=== PATIENT | female | born 1970 | race Caucasian/White ===

== ENCOUNTER 2021-10-22 11:45 | Emergency (ER) | payer OTHER, SELFPAY ==
--- NOTE | ~2021-10-22 | XR_ITS ---
EXAMINATION: XR CHEST CLINICAL INFORMATION: Chest pain COMPARISON: 07/01/2019 TECHNIQUE: 2 views of the chest were obtained. FINDINGS: No significant abnormality is noted involving the heart, lungs, mediastinum, bony thorax or soft tissues. XR/XR chest 2V IMPRESSION: Unremarkable examination.
[2021-10-22 12:51] VITALS: BP 188/83; PULSE 85; RESP 18; TEMP 36.6; O2SAT 99; BMI 32.8
--- NOTE | 2021-10-22 12:56 | ECG_ITS ---
Test Reason : CHESTPAIN Blood Pressure : / mmHG Vent. Rate : 071 BPM Atrial Rate : 071 BPM P-R Int : 172 ms QRS Dur : 080 ms QT Int : 380 ms P-R-T Axes : 045 011 033 degrees QTc Int : 412 ms Normal sinus rhythm Normal ECG When compared with ECG of 01-JUL-2019 10:12, No significant change was found Referred By: Generic ED Physician Electronically Signed By:Tommy Egan
[2021-10-22 13:16] LABS: MANUAL DIFF FLAG NO
[2021-10-22 13:37] LABS: Troponin-I High Sensitivity < 3.5 ng/L (<3.5-17.0)
[2021-10-22 13:46] LABS: Basophils Absolute Auto 0.1 X10*3/uL (0.0-0.2); Basophils Percent Auto 0.9 % (0-2); Eosinophils Absolute Auto 0.1 X10*3/uL (0.0-0.4); Eosinophils Percent Auto 0.7 % (0-4); Hematocrit 42.6 % (37.0-47.0); Hemoglobin 14.1 g/dl (12.0-16.0); Imm Gran Abs Auto 0.04 X10*3/uL (0.00-0.03); Imm Gran Pct Auto 0.5 % (0.0-0.4); Lymphocytes Absolute Auto 2.1 X10*3/uL (1.2-4.9); Lymphocytes Percent Auto 27.4 % (20-40); Mean Corpuscular HGB Conc 33.1 g/dl (31.0-35.0); Mean Corpuscular Hemoglobin 29.9 pg (27.0-33.0); Mean Corpuscular Volume 90.4 fL (80.0-98.0); Mean Platelet Volume 9.3 fL (9.4-12.3); Monocytes Absolute Auto 0.4 X10*3/uL (0.1-1.2); Monocytes Percent Auto 5.6 % (2-11); Neutrophils Absolute Auto 4.8 x10*3/uL (2.0-8.3); Neutrophils Percent Auto 64.9 % (45-73); Platelet Count 429 X10*3/uL (160-400); Red Blood Count 4.71 X10*6/uL (4.20-5.50); Red Cell Distribution Width 13.7 % (11.0-16.0); White Blood Count 7.5 X10*3/uL (4.8-10.8)
[2021-10-22 13:55] LABS: Anion Gap 12 (12-20); Blood Urea Nitrogen 14 mg/dL (9-16); Calcium 9.9 mg/dL (8.4-10.2); Carbon Dioxide 23 mmol/L (22-29); Chloride 108 mmol/L (96-108); Creatinine Clr Calc Pharmacy 94.6; Estimated Glomerular Filt Rate > 60; Glucose Random 96 mg/dL (60-115); Potassium 4.4 mmol/L (3.3-5.1); Sodium 139 mmol/L (135-145)
[2021-10-22 20:00] VITALS: BP 149/83; PULSE 77; RESP 16; O2SAT 100
[2021-10-22 20:30] LABS: COVID-19 Test Negative (Negative)
[2021-10-22] MEDS: Ketorolac Tromethamine 30 MG/ML VIAL 15 MG IVPUSH (21:46)
[2021-10-22 22:15] VITALS: BP 113/80; PULSE 71; RESP 20; TEMP 36.8; O2SAT 97
[2021-10-22 23:02] VITALS: BP 113/80; PULSE 72; RESP 16
[2021-10-22 23:03] VITALS: BP 117/76; PULSE 76; RESP 16; TEMP 36.9; O2SAT 97
[2021-10-23 01:12] VITALS: BP 108/68; PULSE 70; RESP 16
--- NOTE | 2021-10-23 01:22 | ED_ITS ---
HPI - Chest Pain General Chief Complaint: Chest Pain Stated Complaint: Chest pain Time Seen by Provider: 10/22/21 21:05 Source: patient Mode of arrival: ambulatory Limitations: no limitations History of Present Illness HPI narrative: 51-year-old female who presents emergency department for evaluation chest pain, nausea, lightheadedness and dizziness. Patient states that this morning she felt dizzy. She is vague in describing the sensation. She states she then went shopping and then when she came back from the store she developed pain in the left side of her chest. She states the pain is a throbbing aching pain which is constant but waxes and wanes in intensity. The pain did radiate to her left neck. She states she felt a ?clammy ?. The pain was 3 to 5/10 at its worst. The patient states she has had similar episodes in the past but never an episode this lasted this long. The pain does not change with breathing or with movement. She denied fever, chills, cough, shortness of breath or dyspnea on exertion. She has not had any pain or swelling in her extremities. She has not gone on any long trips. Related Data Allergies Allergy/AdvReac Type Severity Reaction Status Date / Time doxycycline [DOXYCYCLINE] Allergy Unknown ANGIOEDEMA Unverified 06/17/20 16:59 Amoxicillin Allergy Unknown Uncoded 10/19/17 00:00 Review of Systems Review of Systems: Yes all other systems are reviewed and are negative [facility] Past Medical History [facility] Narrative: Past medical history: High cholesterol, not being treated, pleurisy, varicose veins. Past surgical history: Varicose vein ablation, a topic with right fallopian tube removed. Social history: The patient is a former smoker, she has quit 17 years prior, she smokes 2 pack of cigarettes per day times 15 years. She does not drink alcohol. She denies drug use. Medical History High cholesterol Social History Social History Alcohol intake: never Patient Tobacco Use Status: Never used Tobacco Use of substances other than those prescribed or required for medical reasons: No Advance Directives: No Advance Directives Information Provided: No Patient : No Physical Exam Vital Signs: Vital Signs: Last Vital Signs Temp 98.5 F 01/22/22 23:03 Pulse 70 10/23/21 01:12 Resp 16 10/23/21 01:12 BP 108/68 10/23/21 01:12 Pulse Ox 97 10/22/21 23:03 BMI result Body Mass Index 32.8 Const: General: cooperative and no acute distress Orientation/consci ousness: oriented to person and oriented to place Limitations: no limitations HENMT: Head: Yes normal to inspection, Yes normocephalic and Yes atraumatic Ears: external ears normal General nose exam: Normal external nose present Face and sinus: Yes normal facial exam Mouth: Normal oral and palatal mucosa present Throat: Yes posterior oropharynx normal Eyes: General: appearance normal, both eyes and all related structures Pupils: Equal, round and reactive pupils present Neck: Neck: Yes normal visual inspection, Yes no lymphadenopathy, Yes trachea midline and Yes supple Chest: Chest palpation & inspection: normal inspection of the chest and tenderness (Left anterior chest) costochondral junction (Left anterior chest) and costal cartilage (Left anterior chest) Resp: Effort & Inspection: normal respiratory effort and able to speak in complete sentences Auscultation: clear to auscultation bilaterally Cardio: Rate: regular rate Rhythm: regular rhythm Heart sounds: S1 normal heart sound present, S2 normal heart sound present and no murmurs GI: Inspection: Yes normal to inspection Palpation (GI): Soft to palpation, nontender and no guarding Auscultation: normal bowel sounds : General: Yes no CVA tenderness Back/Spine/Pelvis: Back: no CVA tenderness Skin: General skin exam: no rashes or lesions noted Neuro: General: oriented to person and oriented to place Cranial nerves: Yes CN's II-XII intact bilaterally and Yes Equal, round and reactive pupils present Cognition (Neuro): normal cognition Motor exam (neuro): 5/5 motor strength present throughout Extrem: General: Yes normal to inspection Psych: Appearance: grossly normal Speech and movement: Normal speech and movement present Affect: normal affect Attitude: cooperative Thought process: Normal thought process present Thought content: Normal thought content present Course Course Course Narrative: 51-year-old female who presents emergency department for evaluation of chest pain that began this morning and has been constant but waxes and wanes in intensity, the pain did radiate to her left neck and she did feel diaphoretic with the pain. Patient states she had similar pain in the past however today's pain lasted much longer. Vital signs revealed initial blood pressure of 180/83 and repeat blood pressure was 108/68. Patient did have tenderness palpation over her left anterior chest or the costochondral joints. Laboratory evaluation revealed a normal CBC and CMP. High sensitive troponin I was below detectable limits. COVID-19 was negative. Chest x-ray was negative. Twelve EKG was unremarkable. Patient was treated with Toradol 15 mg IV with complete resolution of her pain. Patient was given printed and verbal instructions on costochondritis, advised to take ibuprofen Tylenol and discharged home. MDM - Chest Pain Lab Data Result diagrams: 10/22/21 13:12 10/22/21 13:12 Labs: Lab Results 10/22/21 10/22/21 10/22/21 Range/Units 13:12 13:12 13:12 WBC 7.5 (4.8-10.8) X10*3/uL RBC 4.71 (4.20-5.50) X10*6/uL Hgb 14.1 (12.0-16.0) g/dl Hct 42.6 (37.0-47.0) % MCV 90.4 (80.0-98.0) fL MCH 29.9 (27.0-33.0) pg MCHC 33.1 (31.0-35.0) g/dl RDW 13.7 (11.0-16.0) % Plt Count 429 H (160-400) X10*3/uL MPV 9.3 L (9.4-12.3) fL Immature Gran % (Auto) 0.5 H (0.0-0.4) % Neut % (Auto) 64.9 (45-73) % Lymph % (Auto) 27.4 (20-40) % [place] % (Auto) 5.6 (2-11) % Eos % (Auto) 0.7 (0-4) % Baso % (Auto) 0.9 (0-2) % Lymph # (Auto) 2.1 (1.2-4.9) X10*3/uL [place] # (Auto) 0.4 (0.1-1.2) X10*3/uL Eos # (Auto) 0.1 (0.0-0.4) X10*3/uL Baso # (Auto) 0.1 (0.0-0.2) X10*3/uL Abs Immat Gran (auto) 0.04 H (0.00-0.03) X10*3/uL Absolute Neuts (auto) 4.8 (2.0-8.3) x10*3/uL Absolute Nucleated RBC 0.000 (0.0-0.012) X10*3/uL Nucleated RBC % (auto) 0.0 (0.0-0.2) /100WBC Sodium 139 (135-145) mmol/L Potassium 4.4 (3.3-5.1) mmol/L Chloride 108 (96-108) mmol/L Carbon Dioxide 23 (22-29) mmol/L Anion Gap 12 (12-20) BUN 14 (9-16) mg/dL Creatinine 0.73 (0.5-1.4) mg/dL Estim Creat Clear Calc 94.6 Estimated GFR > 60 Random Glucose 96 (60-115) mg/dL Calcium 9.9 (8.4-10.2) mg/dL Troponin I High Sens < 3.5 (<3.5-17.0) ng/L COVID-19 (KARRI) (Negative) COVID-19 Clin Com 10/22/21 Range/Units 20:11 WBC (4.8-10.8) X10*3/uL RBC (4.20-5.50) X10*6/uL Hgb (12.0-16.0) g/dl Hct (37.0-47.0) % MCV (80.0-98.0) fL MCH (27.0-33.0) pg MCHC (31.0-35.0) g/dl RDW (11.0-16.0) % Plt Count (160-400) X10*3/uL MPV (9.4-12.3) fL Immature Gran % (Auto) (0.0-0.4) % Neut % (Auto) (45-73) % Lymph % (Auto) (20-40) % [place] % (Auto) (2-11) % Eos % (Auto) (0-4) % Baso % (Auto) (0-2) % Lymph # (Auto) (1.2-4.9) X10*3/uL [place] # (Auto) (0.1-1.2) X10*3/uL Eos # (Auto) (0.0-0.4) X10*3/uL Baso # (Auto) (0.0-0.2) X10*3/uL Abs Immat Gran (auto) (0.00-0.03) X10*3/uL Absolute Neuts (auto) (2.0-8.3) x10*3/uL Absolute Nucleated RBC (0.0-0.012) X10*3/uL Nucleated RBC % (auto) (0.0-0.2) /100WBC Sodium (135-145) mmol/L Potassium (3.3-5.1) mmol/L Chloride (96-108) mmol/L Carbon Dioxide (22-29) mmol/L Anion Gap (12-20) BUN (9-16) mg/dL Creatinine (0.5-1.4) mg/dL Estim Creat Clear Calc Estimated GFR Random Glucose (60-115) mg/dL Calcium (8.4-10.2) mg/dL Troponin I High Sens (<3.5-17.0) ng/L COVID-19 (KARRI) Negative (Negative) COVID-19 Clin Com See Note ECG Data ECG #1: Interpretation: 1259: Normal sinus rhythm with a rate of 71, normal IN interval QRS duration QTC interval, no ST segment elevation, no ST segment depression, Q-wave in lead 3, no PACs, no PVCs, this is a normal EKG. Discharge Plan Discharge Clinical Impression: Acute costochondritis Patient Disposition: Home, Self-Care Instructions: Costochondritis (ED) Additional Instructions: Your blood work was normal. Your COVID-19 test was negative. Your chest x-ray was normal. Take ibuprofen 200 mg pills, 3 pills every 6 hours for the next 4 days then as needed for pain Take Tylenol (acetaminophen) 500 mg pills, 2 pills every 4 to 6 hours as needed for pain. Follow-up with your doctor in 2 days. Please return to the emergency department if your symptoms get worse or if you develop any symptoms that are concerning to you. Interventions: ED Discharge Assessment Last Done: 10/23/21 01:48 Discharge Date/Time: 10/23/21 01:49
== END 2021-10-23 01:49 | disposition home or self-care (01) ==
PROVIDERS: Emergency Provider Emergency Medicine Emergency Medical Services; PCP Physician Assistant Medical
DX: M94.0 Chondrocostal junction syndrome [Tietze] (principal); Z20.822 Contact with and (suspected) exposure to COVID-19; E78.5 Hyperlipidemia, unspecified
CPT/HCPCS: 36415; 71046; 80048; 84484; 85025; 87635; 93005; 96374; 99284; 99285; J1885

== ENCOUNTER 2024-04-19 09:23 | Outpatient (AMB) | payer OTHER, SELFPAY ==
[2024-04-19 09:57] VITALS: BP 102/80; PULSE 79; TEMP 36.9; O2SAT 98; BMI 33.5
--- NOTE | 2024-04-19 09:57 | AM.OFFWIN_ITS ---
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 Reported at the beginning of March she was in her normal state of health when she developed the pain in her right at low back. It worsened at the end of March and she started self treating with cranberry juice and Advil which relieved her pain until last Sunday when the same pain came back. At this time she tried ice and Advil but this did not work. She was given a muscle relaxer x 1, baclofen, from a friend and this also did not work. She reports that it hurts when she does anything. She also endorses several lipomas throughout her body, wonders if this is what is there. She also reports chronic aches and pains. She reports the statin was causing some of her aches and pains, she is taking intermittently. She denies any fever, chills, chest pain, shortness of breath, trauma, history of blood clots or clotting disorder, prolonged periods of immobility, recent surgery or travel, urinary symptoms. Exam Awake alert oriented, no acute distress Neck full range of motion No CVAT bilat, urine dip within normal limits No spinal tenderness, moves all extremities x4. Plan Advised uncertain of cause of pain at this time. Made aware that it is not a urinary issue. X-ray of her spine & KUB negative for acute findings; specifically nothing in the area that i can palpate R paraspinal region [same exam finding on the left]. I have CC these results to her primary care and advised her to follow up next week. She reports that she does have a follow up appointment scheduled. I have prescribed a muscle relaxer which she can use as needed. She can continue to take a leave or any other [id number] NSAID to help with pain. This note is constructed using voice recognition software. 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 Physical Exam Vital Signs: Last Vital Signs Temp 98.4 F 04/19/24 09:57 Pulse 79 04/19/24 09:57 BP 102/80 04/19/24 09:57 Pulse Ox 98 04/19/24 09:57 Oxygen Delivery Method Room Air 04/19/24 09:57 BMI result Body Mass Index 33.5 Back/Spine/Pelvis Sacroiliac joints: bilaterally nontender Back/spine/pelvis image: 2 1. [place] palpable cord like area the patient is complaining is the point of tenderness, however the same exact area occurs on the left. The overlying skin is intact. Results AMB Urinalysis, Automated 2 UA Leukoctes 0 Kelsie/uL Last Edit by Jaylyn Arias CMA on 04/19/24 10:10 UA Nitrite Negative Last Edit by Jaylyn Arias CMA on 04/19/24 10:10 UA Urobilinogen 0.2 mg/dL Last Edit by Jaylyn Arias CMA on 04/19/24 10:10 UA Protein 0 mg/dL Last Edit by Jaylyn Arias CMA on 04/19/24 10:10 UA pH 6.0 Last Edit by Jaylyn Arias CMA on 04/19/24 10:10 UA Blood 0 Maik/uL Last Edit by Jaylyn Arias CMA on 04/19/24 10:10 UA Specific [place] 1.005 Last Edit by Jaylyn Arias CMA on 04/19/24 10:10 UA Ketone Negative Last Edit by Jaylyn Arias CMA on 04/19/24 10:10 UA Bilirubin 0 mg/dL Last Edit by Jaylyn Arias CMA on 04/19/24 10:10 UA Glucose 0 mg/dL Last Edit by Jaylyn Arias CMA on 04/19/24 10:10 Results Reviewed Results Reviewed: Laboratory Last Values Urine pH (Auto) 6.0 04/19/24 10:03 Specific [place] (Auto) 1.005 04/19/24 10:03 Urine Protein (Auto) 0 mg/dL 04/19/24 10:03 Glucose (UA)(Auto) 0 mg/dL 04/19/24 10:03 Urine Ketones (Auto) Negative 04/19/24 10:03 Urine Blood (Auto) 0 Maik/uL 04/19/24 10:03 Urine Nitrite (Auto) Negative 04/19/24 10:03 Urine Bilirubin (Auto) 0 mg/dL 04/19/24 10:03 Urine Urobilinogen (Auto) 0.2 mg/dL 04/19/24 10:03 Leukocyte Esterase (Auto) 0 Kelsie/uL 04/19/24 10:03 [facility] [address] [place], [place] [address] XRay Report Signed Patient: Katelynn Lyon MR#: [id number] : 1970 Acct:[id number] Age/Sex: 54 / F ADM Date: 04/19/24 [facility] Attending Dr: Carolina HUIZAR Ordering Physician: Carolina Glynn Date of Service: 04/19/24 Procedure(s): XR lumbar spine 2-3V Accession Number(s): [id number] cc: Carolina Glynn; Richard Rosado~ EXAMINATION: XR LUMBOSACRAL SPINE CLINICAL INFORMATION: Lower back pain. COMPARISON: None available. TECHNIQUE: Three views of the lumbosacral spine. FINDINGS: Mild left apical curvature of the upper lumbar spine. No evidence of acute compression deformity or subluxation. Mild multilevel intervertebral disc height loss. Mild to moderate facet arthropathy from L4 through S1. Symmetric SI joints. No significant paraspinal soft tissue abnormality. XR/XR lumbar spine 2-3V IMPRESSION: 1. No acute compression deformity or subluxation. 2. Mild to moderate lower lumbar spondylosis. Dictated By: Lily Sin Signed By: <Electronically signed by Lily Sin in OV> 04/19/24 1123 DD/ 1035 TD/TT: Hydroblaster: [facility] [place] [facility] [place] [address] XRay Report Signed Patient: Katelynn Lyon MR#: [id number] : 1970 Acct:[id number] Age/Sex: 54 / F ADM Date: 04/19/24 Loc: [facility] Attending Dr: Carolina SMITH Ordering Physician: Carolina Glynn Date of Service: 04/19/24 Procedure(s): XR KUB Accession Number(s): [id number] cc: Carolina Glynn; Richard Rosado~ EXAMINATION: XR ABDOMEN KUB CLINICAL INDICATION: Abdominal pain. COMPARISON: None available. TECHNIQUE: AP view of the abdomen. FINDINGS: Nonobstructive bowel gas pattern. Mild to moderate degree of colonic stool burden in the right hemicolon. Visualized lung bases are clear. Pelvic phleboliths are seen. No acute osseous findings. XR/XR KUB IMPRESSION: Nonobstructive bowel gas pattern. Mild to moderate colonic stool burden. Dictated By: Lily Sin Signed By: <Electronically signed by Lily Sin in OV> 04/19/24 1122 DD/ 1035 TD/TT: Hydroblaster: Assessment & Plan Assessment & Plan (1) Right flank pain: Comment: . Code(s): R10.9 - Unspecified abdominal pain Plan: . (2) Low back pain: Code(s): M54.50 - Low back pain, unspecified Qualifiers: Chronicity: chronic Back pain laterality: right Sciatica presence: w ithout sciatica Qualified Code(s): M54.50 - Low back pain, unspecified; G89.29 - Other chronic pain Plan: . Plan . Orders: Orders 2 AMB Urinalysis Automated Today Z13.9 - Encounter for screening, unspecified XR KUB Today M54.50 - Low back pain, unspecified, R10.9 - Unspecified abdominal pain XR lumbar spine 2-3V Today M54.50 - Low back pain, unspecified, R10.9 - Unspecified abdominal pain Medications: New 2 tizanidine (Zanaflex) 4 mg PO Q8H PRN 15 tabs 0RF muscle spasticity Coding Level of Care Code Est Pt Level 4 (10670) Diagnoses Right flank pain R10.9 Chronic right-sided low back pain without sciatica M54.50; G89.29 Chronicity: chronic Back pain laterality: right Sciatica presence: without sciatica
== END 2024-04-19 11:38 | disposition home or self-care (01) ==
PROVIDERS: PCP Physician Assistant Medical; Visit Provider Nurse Practitioner Family
DX: R10.9 Unspecified abdominal pain (principal); M54.50 Low back pain, unspecified; G89.29 Other chronic pain; Z13.9 Encounter for screening, unspecified
CPT/HCPCS: 81003; 99051; 99214

== ENCOUNTER 2024-04-19 10:23 | Outpatient (REF) | payer OTHER, SELFPAY ==
--- NOTE | ~2024-04-19 | XR_ITS ---
EXAMINATION: XR LUMBOSACRAL SPINE CLINICAL INFORMATION: Lower back pain. COMPARISON: None available. TECHNIQUE: Three views of the lumbosacral spine. FINDINGS: Mild left apical curvature of the upper lumbar spine. No evidence of acute compression deformity or subluxation. Mild multilevel intervertebral disc height loss. Mild to moderate facet arthropathy from L4 through S1. Symmetric SI joints. No significant paraspinal soft tissue abnormality. XR/XR lumbar spine 2-3V IMPRESSION: 1. No acute compression deformity or subluxation. 2. Mild to moderate lower lumbar spondylosis.
--- NOTE | ~2024-04-19 | XR_ITS ---
EXAMINATION: XR ABDOMEN KUB CLINICAL INDICATION: Abdominal pain. COMPARISON: None available. TECHNIQUE: AP view of the abdomen. FINDINGS: Nonobstructive bowel gas pattern. Mild to moderate degree of colonic stool burden in the right hemicolon. Visualized lung bases are clear. Pelvic phleboliths are seen. No acute osseous findings. XR/XR KUB IMPRESSION: Nonobstructive bowel gas pattern. Mild to moderate colonic stool burden.
== END 2024-04-19 10:24 | disposition home or self-care (01) ==
LOC: HO.HMGCX 10:23
PROVIDERS: PCP Physician Assistant Medical; Visit Provider Nurse Practitioner Family
DX: R10.9 Unspecified abdominal pain (principal); M54.50 Low back pain, unspecified
CPT/HCPCS: 72100; 74018